=== PATIENT | male | born 1995 | race Caucasian/White ===

== ENCOUNTER 2019-07-01 22:01 | Emergency (ER) | payer OTHER ==
[~2019-07-01] VITALS: Ht 167.6 cm; Wt 65.9 kg
[2019-07-01 22:01] VITALS: BP 134/78
[2019-07-01] MEDS ORDERED: BACTRIM 160MG/800MG DS TAB PO ONE (22:15)
[2019-07-01] MEDS ORDERED: BACT800T5 PO (22:20)
== END 2019-07-01 22:29 | disposition home or self-care (01) ==
LOC: M ED 22:01
DX: L03.114 Cellulitis of left upper limb (principal); Z86.14 Personal history of Methicillin resistant Staphylococcus aureus infection

== ENCOUNTER 2020-07-09 16:20 | Emergency (ER) | payer OTHER ==
[~2020-07-09] VITALS: Ht 167.6 cm; Wt 70.1 kg
[~2020-07-09 16:20] MED LIST: BACT800T5 PO
--- NOTE | 2020-07-09 16:54 | REP ---
INDICATION: MEMORY LOSS. COMPARISON: None. TECHNIQUE: Axial CT with multiplanar reformations. FINDINGS: No acute bleed or acute large vessel territorial infarct. Ventricles, cisterns and sulci are within normal limits. No mass effect or midline shift. No abnormal fluid collections. Paranasal sinuses and mastoid air cells are clear IMPRESSION: No acute findings. Normal examination. <Electronically signed by Marv Meredith > 07/09/20 [id number]
[2020-07-09] MEDS ORDERED: diphenhydrAMINE 50MG/ML VIAL (J1200) IV STA (17:09)
[2020-07-09] MEDS ORDERED: KETOROLAC 30 MG/ML 1ML VIAL IV ONE (17:10)
[2020-07-09] MEDS ORDERED: NS 1,000 ML IV ONE (17:10)
[2020-07-09] MEDS ORDERED: METOCLOPRAMIDE INJ 10MG/2ML VIAL (J2765 PER 1) IV ONE (17:10)
[2020-07-09 17:36] LABS: BASO % 0.6 % (0.0-1.0); EOS % 0.8 % (0.0-3.0); HEMATOCRIT 43.3 % (42.0-52.0); HEMOGLOBIN 14.4 g/dl (13.5-17.5); LYMPH # 1.7 10^3/uL (1.5-5.0); LYMPH % 34.4 % (24.0-44.0); MEAN CORPUSCULAR HEMOGLOBIN 29.4 pg (27.0-33.0); MEAN CORPUSCULAR HGB CONC 33.3 g/dl (32.0-36.5); MEAN CORPUSCULAR VOLUME 88.5 fl (80.0-96.0); MONO # 0.4 10^3/uL (0.0-0.8); MONO % 8.5 % (2.0-8.0); NEUTROPHILS # 2.7 10^3/uL (1.5-8.5); NEUTROPHILS % 55.3 % (36.0-66.0); PLATELET COUNT, AUTOMATED 182 10^3/uL (150-450); RED BLOOD COUNT 4.89 10^6/uL (4.30-6.10); WHITE BLOOD COUNT 4.9 10^3/uL (4.0-10.0)
[2020-07-09] MEDS ORDERED: ISOVUE-370 76% 100ML VIAL As Ordered ONE (17:38)
[2020-07-09 18:00] LABS: ERYTHROCYTE SEDIMENTATION RATE 1 mm/hr (0-15)
[2020-07-09 18:08] LABS: ALBUMIN 3.6 GM/DL (3.2-5.2); ALT/SGPT 47 U/L (12-78); BILIRUBIN,DIRECT < 0.1 MG/DL (0.0-0.2); BILIRUBIN,TOTAL 0.3 MG/DL (0.2-1.0); TOTAL PROTEIN 6.3 GM/DL (6.4-8.2)
--- NOTE | 2020-07-09 18:24 | REPVR ---
PROCEDURE INFORMATION: Exam: CT Angiography Head With Contrast Exam date and time: 07/09/2020 5:09 PM Age: 24 years old Clinical indication: Pain; Other: Vision loss; Headache; Additional info: Severe headache with vision loss TECHNIQUE: Imaging protocol: Computed tomography angiography of the head with intravenous contrast. 3D rendering (Not supervised by radiologist): MIP and/or 3D reconstructed images were created by the technologist. Radiation optimization: All CT scans at this facility use at least one of these dose optimization techniques: automated exposure control; mA and/or kV adjustment per patient size (includes targeted exams where dose is matched to clinical indication); or iterative reconstruction. Contrast material: ISOVUE 370; Contrast volume: 75 ml; Contrast route: INTRAVENOUS (IV); COMPARISON: CT Head without contrast 07/09/2020 4:30 PM FINDINGS: ANTERIOR CIRCULATION: Right internal carotid artery: Unremarkable. Intracranial segment is patent with no significant stenosis. No aneurysm. Right middle cerebral artery: Unremarkable. No occlusion or significant stenosis. No aneurysm. Right anterior cerebral artery: Unremarkable. No occlusion or significant stenosis. No aneurysm. Left internal carotid artery: Unremarkable. Intracranial segment is patent with no significant stenosis. No aneurysm. Left middle cerebral artery: Unremarkable. No occlusion or significant stenosis. No aneurysm. Left anterior cerebral artery: Unremarkable. No occlusion or significant stenosis. No aneurysm. POSTERIOR CIRCULATION: Right vertebral artery: Unremarkable. No occlusion or significant stenosis. No aneurysm. Left vertebral artery: Unremarkable. No occlusion or significant stenosis. No aneurysm. Basilar artery: Unremarkable. No occlusion or significant stenosis. No aneurysm. Right posterior cerebral artery: Unremarkable. No occlusion or significant stenosis. No aneurysm. Left posterior cerebral artery: Unremarkable. No occlusion or significant stenosis. No aneurysm. Brain: No definite mass, mass effect, or midline shift. Cerebral ventricles: No ventriculomegaly. Bones/joints: Unremarkable. No acute fracture. Soft tissues: Unremarkable. IMPRESSION: No large vessel stenosis or occlusion. Electronically signed by: Malcolm Romo On 07/09/2020 18:25:33 PM
--- NOTE | 2020-07-09 18:27 | REPVR ---
PROCEDURE INFORMATION: Exam: CT Angiography Neck With Contrast Exam date and time: 07/09/2020 5:09 PM Age: 24 years old Clinical indication: Pain; Other: Vision loss; Headache; Additional info: Severe headache with vision loss TECHNIQUE: Imaging protocol: Computed tomography angiography of the neck with contrast. 3D rendering (Not supervised by radiologist): MIP and/or 3D reconstructed images were created by the technologist. Radiation optimization: All CT scans at this facility use at least one of these dose optimization techniques: automated exposure control; mA and/or kV adjustment per patient size (includes targeted exams where dose is matched to clinical indication); or iterative reconstruction. Contrast material: ISOVUE 370; Contrast volume: 75 ml; Contrast route: INTRAVENOUS (IV); COMPARISON: No relevant prior studies available. FINDINGS: Right common carotid artery: No stenosis. No dissection or occlusion. Right internal carotid artery: No stenosis of the extracranial segment. No dissection or occlusion. Right external carotid artery: No occlusion or stenosis of the origin. Right vertebral artery: No stenosis. No dissection or occlusion. Left common carotid artery: No stenosis. No dissection or occlusion. Left internal carotid artery: No stenosis of the extracranial segment. No dissection or occlusion. Left external carotid artery: No occlusion or stenosis of the origin. Left vertebral artery: No stenosis. No dissection or occlusion. Bones/joints: No acute fracture. Soft tissues: Normal. No significant soft tissue swelling. IMPRESSION: No stenosis or occlusion. REFERENCES: NASCET CRITERIA. The degree of internal carotid artery stenosis is based on NASCET criteria. Normal is no stenosis. Mild is less than 50% stenosis. Moderate is 50-69% stenosis. Severe is 70% to 99% stenosis. Total occlusion is no detectable patent lumen. Electronically signed by: Malcolm Romo On 07/09/2020 18:28:04 PM
[2020-07-09 18:49] LABS: BLOOD UREA NITROGEN 13 MG/DL (7-18); CALCIUM LEVEL 8.4 MG/DL (8.5-10.1); CARBON DIOXIDE LEVEL 30 MEQ/L (21-32); CHLORIDE LEVEL 107 MEQ/L (98-107); CREATININE FOR GFR 0.87 MG/DL (0.70-1.30); GLOMERULAR FILTRATION RATE > 60.0 (>60); GLUCOSE, FASTING 82 MG/DL (70-100); POTASSIUM SERUM 3.7 MEQ/L (3.5-5.1); SODIUM LEVEL 140 MEQ/L (136-145)
[2020-07-09 19:32] VITALS: BP 116/56
--- NOTE | 2020-07-09 22:35 | ECGEPIP ---
[facility] - ED Test Date: 2020-07-09 Pat Name: JUANITA VENTURA Department: Room: - Gender: Male Family [employer] Case Manager: susanne : 1995 Requested By: HANK COLLINS Order Number: [id number] Reading MD: Hank Stanley Measurements Intervals [place] Rate: 81 P: 45 AL: 156 QRS: 42 QRSD: 92 T: 44 QT: 344 QTc: 399 Interpretive Statements Normal sinus rhythm with sinus arrhythmia Comparison tracing not on file Electronically Signed on 07-09-2020 22:35:04 EDT by Hank Stanley
== END 2020-07-09 20:44 | disposition left against medical advice (07) ==
LOC: M ED 16:20
DX: G43.109 Migraine with aura, not intractable, without status migrainosus (principal); Z53.9 Procedure and treatment not carried out, unspecified reason
CPT/HCPCS: 70450; 70496; 70498; 80047; 80048; 80076; 84443; 85025; 85652; 93005; 93041; 94760; 96361; 96374; 96375; 99284; J1200; J1885; J2765; Q9967

== ENCOUNTER 2020-11-21 01:38 | Emergency (ER) | payer OTHER ==
[~2020-11-21] VITALS: Ht 167.6 cm; Wt 72.4 kg
[2020-11-21 01:39] VITALS: BP 135/72
[2020-11-21] MEDS ORDERED: IBUP-351 PO (01:52)
== END 2020-11-21 04:33 | disposition left against medical advice (07) ==
LOC: M ED 01:38
DX: Z53.21 Procedure and treatment not carried out due to patient leaving prior to being seen by health care provider (principal)